=== PATIENT | female | born 1975 | race African-American/Black ===

== ENCOUNTER 2023-03-19 09:00 | Outpatient (CLI) | payer OTHER, SELFPAY ==
--- NOTE | ~2023-03-19 | MR_ITS ---
EXAMINATION: MR orbits face neck wo/w con DATE: 03/19/2023 09:56 INDICATION: Benign neoplasm of lower jaw bone. TECHNIQUE: Magnetic resonance imaging (MRI) of the neck was performed without and with 11 mL MultiHan ce intravenous contrast. COMPARISON: None. FINDINGS: There is a skin marker in the submandibular region. There is a normal-sized submandibular l ymph node deep to the skin marker. There are no pathologically enlarged lymph nodes. There is mild mu cosal thickening in the paranasal sinuses. The mandible is unremarkable. IMPRESSION: 1. No abnormal mass or lymphadenopathy. Reviewed, dictated and finalized at location E.
== END 2023-03-19 09:01 | disposition home or self-care (01) ==
LOC: ANHIMG 09:02
PROVIDERS: PCP Internal Medicine
DX: D16.5 Benign neoplasm of lower jaw bone (principal)
CPT/HCPCS: 70543; A9577